=== PATIENT | male | born 1990 | race Two or more races ===

== ENCOUNTER 2018-12-03 12:20 | Emergency (ER) | payer OTHER ==
[~2018-12-03] VITALS: Ht 167.6 cm; Wt 72.6 kg
== END 2018-12-03 19:03 | disposition home or self-care (01) ==
LOC: ER 12:20
DX: N45.1 Epididymitis (principal); N50.812 Left testicular pain

== ENCOUNTER → 2018-12-05 | Emergency (ER) | payer OTHER ==
[~2018-12-05] VITALS: Ht 167.6 cm; Wt 72.6 kg
== END | disposition home or self-care (01) ==
LOC: ER 14:38
DX: N45.1 Epididymitis (principal); N50.812 Left testicular pain